=== PATIENT | female | born 1980 | race Hispanic/Latino ===

== ENCOUNTER 2019-07-17 05:18 | Emergency (ER) | payer OTHER ==
[2019-07-17] MEDS ORDERED: Amlodipine 5 MG TAB ONE (05:56)
[2019-07-17] MEDS ORDERED: Amlodipine 5 MG TAB PO SCH (06:00)
[2019-07-17 06:12] LABS: #Neutrophils 9.4 thou/uL (1.40-6.50); %Basophils 0.1 % (0.0-1.0); %Eosinophils 0.3 % (0.0-10.0); %Lymphocytes 8.4 % (21.0-51.0); %Monocytes 8.4 % (0.0-10.0); %Neutrophils 82.8 % (42.0-75.0); Hemoglobin 11.9 g/dL (12.0-16.0); Mean Corpuscular HGB CONC 31.7 g/dL (32.0-36.0); Mean Corpuscular Hemoglobin 23.1 pg (27.0-31.0); Mean Corpuscular Volume 72.9 fL (78.0-98.0); Mean Platelet Volume 8.5 fL (7.4-10.4); Platelet Count 531 thou/uL (130-400); RBC Distribution Width 14.6 % (11.5-14.5); Red Blood Cell (RBC) Count 5.14 mill/uL (4.20-5.40); White Blood Cell (WBC) Count 11.3 thou/uL (4.8-10.8)
[2019-07-17 06:33] LABS: ALT (SGPT) 59 U/L (8-55); AST (SGOT) 42 U/L (5-34); Albumin 4.4 g/dL (3.5-5.0); Alkaline Phosphatase 116 U/L (40-110); Anion Gap 15 mmol/L (10-20); BUN (Urea Nitrogen) 13 mg/dL (7.0-18.7); Bilirubin, Total 0.6 mg/dL (0.2-1.2); Calc. Creatinine Clearance 0 mL/min (70-130); Calcium 9.5 mg/dL (7.8-10.44); Carbon Dioxide 24 mmol/L (22-29); Chloride 102 mmol/L (98-107); Estimated GFR-MDRD 77; Globulin 4.3 g/dL (2.4-3.5); Glucose 109 mg/dL (70-105); Potassium 3.2 mmol/L (3.5-5.1); Protein, Total 8.7 g/dL (6.0-8.3); Sodium 138 mmol/L (136-145)
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
== END 2019-07-17 07:00 | disposition home or self-care (01) ==
LOC: ERS 05:18
DX: I10 Essential (primary) hypertension (principal); Z79.899 Other long term (current) drug therapy
CPT/HCPCS: 71045; 80053; 85025

== ENCOUNTER 2019-09-07 18:06 | Emergency (ER) | payer OTHER ==
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
[2019-09-07] MEDS ORDERED: Ibuprofen 800 MG TAB ONE (19:07)
[2019-09-07] MEDS ORDERED: Metoclopramide HCl 10 MG TAB ONE (19:07)
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
== END 2019-09-07 19:50 | disposition home or self-care (01) ==
LOC: ERS 18:06
DX: S06.0X9A Concussion with loss of consciousness of unspecified duration, initial encounter (principal); I10 Essential (primary) hypertension; Z79.899 Other long term (current) drug therapy; Y04.8XXA Assault by other bodily force, initial encounter
CPT/HCPCS: 70450; 71045